=== PATIENT | female | born 1965 | race Caucasian/White ===

== ENCOUNTER 2020-06-07 12:55 | Outpatient (CLI) | payer MEDICARE, MEDICAID | END 2020-06-07 23:59 | disposition home or self-care (01) | LOC: CARD DIAG 12:55 | PROVIDERS: ATTEND Internal Medicine Cardiovascular Disease | DX: I08.0 Rheumatic disorders of both mitral and aortic valves (principal); I10 Essential (primary) hypertension | CPT/HCPCS: 93306 ==